=== PATIENT | female | born 1975 | race Caucasian/White ===

== ENCOUNTER 2018-06-03 19:51 | Emergency (ER) | payer SELFPAY, MEDICAID ==
[2018-06-03] MEDS: IBUPROFEN 600 MG TAB PO (23:49)
[2018-06-04] MEDS: DIPHTH/TET/ACEL PERTUSS (ADULT) 0.5 ML VIAL IM* (00:01)
[2018-06-04] MEDS: MUPIROCIN 2% 22 GM OINT TOP (00:24)
[2018-06-04] MEDS: CLINDAMYCIN 300 MG CAP PO (00:24)
== END 2018-06-04 00:38 | disposition home or self-care (01) ==
LOC: FTE 19:51
DX: T24.212A Burn of second degree of left thigh, initial encounter (principal); X10.2XXA Contact with fats and cooking oils, initial encounter; Y92.9 Unspecified place or not applicable; Z23 Encounter for immunization
CPT/HCPCS: 90471; 90715; 99283-25